=== PATIENT | female | born 1945 | race Native Hawaiian/Other Pacific Islander ===

== ENCOUNTER 2017-07-10 08:48 | Outpatient (CLI) | payer OTHER, BC | END 2017-07-10 11:00 | disposition home or self-care (01) | LOC: MAMMO 08:48 | DX: Z12.31 Encounter for screening mammogram for malignant neoplasm of breast (principal) ==

== ENCOUNTER 2018-01-13 10:06 | Outpatient (CLI) | payer OTHER, BC ==
[2018-01-13 10:43] LABS: PLATELET COUNT 193 K/uL (152-353)
[2018-01-13 11:40] LABS: POTASSIUM 4.4 mmol/L (3.6-5.2)
== END 2018-01-13 21:58 | disposition home or self-care (01) ==
LOC: LABW 10:06
PROVIDERS: Internal Medicine
DX: D64.9 Anemia, unspecified (principal); E53.8 Deficiency of other specified B group vitamins; I10 Essential (primary) hypertension; E78.5 Hyperlipidemia, unspecified; N95.8 Other specified menopausal and perimenopausal disorders; R73.9 Hyperglycemia, unspecified; E53.9 Vitamin B deficiency, unspecified; E55.9 Vitamin D deficiency, unspecified; R53.1 Weakness; Z79.899 Other long term (current) drug therapy; E53.1 Pyridoxine deficiency; N18.9 Chronic kidney disease, unspecified
CPT/HCPCS: 36415; 80053; 80061; 81000; 82306; 82533; 82607; 82626; 82670; 82728; 82746; 83036; 83735; 84144; 84207; 84305; 84402; 84403; 84439; 84443; 85027; 86140

== ENCOUNTER 2018-07-24 12:56 | Outpatient (CLI) | payer OTHER, BC | END 2018-07-24 22:24 | disposition home or self-care (01) | LOC: MAMMO 12:56 | DX: Z12.31 Encounter for screening mammogram for malignant neoplasm of breast (principal) ==

== ENCOUNTER 2018-08-20 10:12 | Outpatient (CLI) | payer OTHER, BC ==
[2018-08-20 10:37] LABS: PLATELET COUNT 191 K/uL (152-353)
== END 2018-08-20 20:46 | disposition home or self-care (01) ==
LOC: RAD 10:12
PROVIDERS: Internal Medicine Pulmonary Disease
DX: G47.33 Obstructive sleep apnea (adult) (pediatric) (principal); I10 Essential (primary) hypertension; M47.812 Spondylosis without myelopathy or radiculopathy, cervical region; F41.1 Generalized anxiety disorder; D05.11 Intraductal carcinoma in situ of right breast; T78.49XA Other allergy, initial encounter; K63.5 Polyp of colon; E78.00 Pure hypercholesterolemia, unspecified
CPT/HCPCS: 36415; 80053; 80061; 81000; 83735; 84439; 84443; 84550; 85027

== ENCOUNTER 2019-10-14 10:28 | Outpatient (CLI) | payer OTHER, BC | END 2019-10-14 22:53 | disposition home or self-care (01) | LOC: MAMMO 10:28 | DX: Z12.31 Encounter for screening mammogram for malignant neoplasm of breast (principal); M81.8 Other osteoporosis without current pathological fracture ==

== ENCOUNTER 2019-11-04 15:02 | Outpatient (CLI) | payer OTHER, BC | END 2019-11-04 19:11 | disposition home or self-care (01) | LOC: US 15:02 | DX: R92.8 Other abnormal and inconclusive findings on diagnostic imaging of breast (principal) ==

== ENCOUNTER 2019-12-02 11:00 | Outpatient (CLI) | payer OTHER, BC | END 2019-12-02 21:52 | disposition home or self-care (01) | LOC: MAMMO 11:00 | DX: N63.0 Unspecified lump in unspecified breast (principal); Z98.890 Other specified postprocedural states; N64.59 Other signs and symptoms in breast | CPT/HCPCS: G0279 ==

== ENCOUNTER 2019-12-21 07:57 | Outpatient (CLI) | payer OTHER, BC ==
[2019-12-21 08:41] LABS: POTASSIUM 3.5 mmol/L (3.6-5.2)
== END 2019-12-21 21:20 | disposition home or self-care (01) ==
LOC: LABW 07:57
PROVIDERS: Surgery
DX: C50.912 Malignant neoplasm of unspecified site of left female breast (principal); Z17.0 Estrogen receptor positive status [ER+]
CPT/HCPCS: 36415; 80048; 93005

== ENCOUNTER 2020-05-22 09:58 | Outpatient (CLI) | payer OTHER, BC | END 2020-05-22 21:39 | disposition home or self-care (01) | LOC: RAD 09:58 | PROVIDERS: ATTEND Family Medicine | DX: M81.8 Other osteoporosis without current pathological fracture (principal); Z13.820 Encounter for screening for osteoporosis ==

== ENCOUNTER 2021-02-05 08:52 | Outpatient (CLI) | payer OTHER, BC | END 2021-02-05 22:13 | disposition home or self-care (01) | LOC: MAMMO 08:52 | PROVIDERS: ATTEND Nurse Practitioner Family | DX: C50.911 Malignant neoplasm of unspecified site of right female breast (principal); Z17.0 Estrogen receptor positive status [ER+]; C50.912 Malignant neoplasm of unspecified site of left female breast; N64.59 Other signs and symptoms in breast | CPT/HCPCS: G0279 ==

== ENCOUNTER 2021-03-19 14:14 | Outpatient (CLI) | payer OTHER, BC ==
[2021-03-19 15:09] LABS: PLATELET COUNT 189 K/uL (152-353)
[2021-03-19 15:30] LABS: POTASSIUM 3.8 mmol/L (3.6-5.2)
== END 2021-03-19 19:13 | disposition home or self-care (01) ==
LOC: LAB 14:14
PROVIDERS: ATTEND Nurse Practitioner Family
DX: I10 Essential (primary) hypertension (principal); E78.49 Other hyperlipidemia; E53.8 Deficiency of other specified B group vitamins; K21.9 Gastro-esophageal reflux disease without esophagitis; F32.9 Major depressive disorder, single episode, unspecified; Z79.899 Other long term (current) drug therapy; R53.83 Other fatigue; R53.81 Other malaise
CPT/HCPCS: 80053; 80061; 82306; 82607; 83036; 84439; 84443; 85027

== ENCOUNTER 2021-08-29 13:12 | Outpatient (CLI) | payer OTHER, BC | END 2021-08-29 19:12 | disposition home or self-care (01) | LOC: MAMMO 13:12 | PROVIDERS: ATTEND Family Medicine | DX: Z08 Encounter for follow-up examination after completed treatment for malignant neoplasm (principal); Z85.3 Personal history of malignant neoplasm of breast; Z12.31 Encounter for screening mammogram for malignant neoplasm of breast | CPT/HCPCS: G0279 ==

== ENCOUNTER 2021-10-23 10:45 | Outpatient (CLI) | payer OTHER, BC ==
[2021-10-23 11:13] LABS: PLATELET COUNT 194 K/uL (152-353)
[2021-10-23 11:30] LABS: POTASSIUM 3.5 mmol/L (3.6-5.2)
== END 2021-10-23 19:30 | disposition home or self-care (01) ==
LOC: LABW 10:45
PROVIDERS: ATTEND Internal Medicine
DX: N18.32 Chronic kidney disease, stage 3b (principal); R53.83 Other fatigue; E53.8 Deficiency of other specified B group vitamins; R79.89 Other specified abnormal findings of blood chemistry
CPT/HCPCS: 36415; 80053; 81000; 82043; 82330; 82570; 82607; 82728; 82746; 83036; 83540; 83550; 83735; 83970; 84100; 84156; 84439; 84443; 85027; 85652; 86038

== ENCOUNTER 2021-11-15 10:23 | Emergency (ER) | payer OTHER, BC ==
[~2021-11-15] VITALS: Ht 162.6 cm; Wt 59.0 kg
[2021-11-15 10:27] VITALS: TEMP 97.7
[2021-11-15 11:03] LABS: PLATELET COUNT 142 K/uL (152-353)
[2021-11-15 11:13] LABS: POTASSIUM 3.8 mmol/L (3.6-5.2)
[2021-11-15 11:57] VITALS: BP 118/78
== END 2021-11-15 11:58 | disposition home or self-care (01) ==
LOC: ED 10:23
PROVIDERS: Emergency Medicine
DX: S00.83XA Contusion of other part of head, initial encounter (principal); S13.8XXA Sprain of joints and ligaments of other parts of neck, initial encounter; W01.190A Fall on same level from slipping, tripping and stumbling with subsequent striking against furniture, initial encounter; Y92.89 Other specified places as the place of occurrence of the external cause
CPT/HCPCS: 80048; 85027; 99283

== ENCOUNTER 2022-03-08 09:38 | Outpatient (CLI) | payer OTHER, BC | END 2022-03-08 20:32 | disposition home or self-care (01) | LOC: LAB 09:38 → MRI 09:38 | PROVIDERS: ATTEND Psychiatry & Neurology Neurology | DX: R41.82 Altered mental status, unspecified (principal) | CPT/HCPCS: 82746; 85652; 86038 ==

== ENCOUNTER 2022-12-10 08:44 | Outpatient (CLI) | payer OTHER | END 2022-12-10 19:12 | disposition home or self-care (01) | LOC: MAMMO 08:44 | PROVIDERS: ATTEND Obstetrics & Gynecology | DX: Z12.31 Encounter for screening mammogram for malignant neoplasm of breast (principal); Z85.3 Personal history of malignant neoplasm of breast | CPT/HCPCS: G0279 ==